=== PATIENT | male | born 1965 | race African-American/Black ===

== ENCOUNTER 2021-11-01 09:38 | Emergency (ER) | payer BC, MEDICAID ==
[~2021-11-01] VITALS: Ht 170.2 cm; Wt 89.0 kg
[2021-11-01 10:17] LABS: BASOPHILS % 0.4 % (0.0-2.0); EOSINOPHILS % 1.6 % (0.0-5.0); HEMATOCRIT. 47.4 % (42.0-52.0); MEAN CORPUSCULAR HEMOGLOBIN 32.6 pg (28.0-32.0); MEAN CORPUSCULAR VOLUME 96.5 fL (80.0-94.0); MEAN PLATELET VOLUME 10.1 fl (7.4-10.4); MONOCYTES % 8.6 % (2.0-8.0); NEUTROPHILS % 63.4 % (40.0-76.0); PLATELET 177 x1000/uL (130-400); RED BLOOD CELL COUNT 4.91 mill/uL (4.7-6.1); RED CELL DISTRIBUTION WIDTH 14.4 % (11.6-14.6)
[2021-11-01 10:23] LABS: CHLORIDE 108 mEq/L (98-107)
[2021-11-01] MEDS ORDERED: ASPIRIN 81MG TABLET PO ONE (11:30)
[2021-11-01] MEDS ORDERED: NITROGLYCERIN 0.4MG TABLET SL SL PRN (11:30)
[2021-11-01] MEDS ORDERED: CYCL10TA7 MT (11:45)
[2021-11-01 12:23] VITALS: BP 132/88
== END 2021-11-01 12:26 | disposition home or self-care (01) ==
LOC: ER 09:38
DX: R07.89 Other chest pain (principal); I20.0 Unstable angina; I10 Essential (primary) hypertension; F17.290 Nicotine dependence, other tobacco product, uncomplicated; F15.10 Other stimulant abuse, uncomplicated; K21.9 Gastro-esophageal reflux disease without esophagitis
CPT/HCPCS: 36415; 71045; 80053; 83880; 84484; 85025; 93005; 99285; 99406

== ENCOUNTER 2025-10-23 07:56 | Emergency (ER) | payer MEDICAID ==
[~2025-10-23] VITALS: Ht 175.3 cm; Wt 85.0 kg
[~2025-10-23 07:56] MED LIST: CYCL10TA21 MT
[2025-10-23 08:05] VITALS: O2SAT 99
[2025-10-23 08:46] LABS: BASOPHILS % 0.8 % (0.0-2.0); EOSINOPHILS % 2.2 % (0.0-5.0); HEMATOCRIT. 47.1 % (42.0-52.0); HEMOGLOBIN. 15.4 g/dL (14.0-18.0); LYMPHOCYTES % 30.9 % (20.0-50.0); MEAN PLATELET VOLUME 9.5 fl (7.4-10.4); MONOCYTES % 6.5 % (2.0-8.0); NEUTROPHILS % 59.6 % (40.0-76.0); PLATELET 185 x1000/uL (130-400); RED BLOOD CELL COUNT 4.90 mill/uL (4.7-6.1); RED CELL DISTRIBUTION WIDTH 14.2 % (11.6-14.6)
[2025-10-23 09:11] LABS: CREATININE 1.1 mg/dL (0.6-1.3); TROPONIN I HIGH SENSITIVITY 39 ng/L (3.0-53); UREA NITROGEN BLOOD 11 mg/dL (9-23)
[2025-10-23] MEDS: ASPIRIN 325MG TABLET PO ONE (09:52)
[2025-10-23] MEDS ORDERED: METOPROLOL SUCCINATE 25MG ER TABLET PO SCH (11:00)
[2025-10-23] MEDS ORDERED: ACETAMINOPHEN 325MG TABLET PO PRN ×2 (11:00)
[2025-10-23] MEDS ORDERED: EMPAGLIFLOZIN 10MG TABLET PO SCH (11:00)
[2025-10-23] MEDS ORDERED: NITROGLYCERIN 0.4MG TABLET SL SL PRN (11:00)
[2025-10-23] MEDS ORDERED: SACUBITRIL/VALSARTAN 24MG/26MG TABLET PO SCH (11:00)
[2025-10-23] MEDS ORDERED: DOCUSATE SODIUM 100MG CAPSULE PO PRN (11:00)
[2025-10-23] MEDS ORDERED: IPRATROPIUM/ALBUTEROL 0.5-3(2.5)MG/3ML NEB HHN PRN (11:00)
[2025-10-23] MEDS ORDERED: ONDANSETRON HCL 4MG/2ML INJ IV PRN (11:00)
[2025-10-23] MEDS ORDERED: GUAIFENESIN 200MG/10ML SUGAR FREE UDC PO PRN (11:00)
[2025-10-23 12:34] LABS: TROPONIN I HIGH SENSITIVITY 39 ng/L (3.0-53)
[2025-10-23] MEDS ORDERED: ENOXAPARIN 40MG/0.4ML SYR SUBCUT SCH (13:00)
[2025-10-23 13:02] VITALS: BP 147/83; PULSE 69; RESP 16; TEMP 36.6; O2SAT 98
[2025-10-23] MEDS ORDERED: ATORVASTATIN CALCIUM 40MG TABLET PO SCH (21:00)
[2025-10-24] MEDS ORDERED: PANTOPRAZOLE SODIUM 40 MG/VIAL IV SCH (09:00)
[2025-10-24] MEDS ORDERED: ASPIRIN 81MG EC TABLET PO SCH (09:00)
== END 2025-10-23 13:35 | disposition home or self-care (01) ==
LOC: ER 07:56 → EDBEDREQ 10:33 → EDBEDREQTM 10:33 → EDBEDREQ 10:51 → ENRESERV 12:22 → ER 13:35 → CMPBEDREQ 10-24 07:57
DX: R07.9 Chest pain, unspecified (principal); E11.9 Type 2 diabetes mellitus without complications; R06.02 Shortness of breath; F17.210 Nicotine dependence, cigarettes, uncomplicated; Z98.1 Arthrodesis status
CPT/HCPCS: 36415; 71045; 80048; 83036; 83880; 84484; 85025; 93005; 93970; 99285; A4606